=== PATIENT | male | born 1955 | race Caucasian/White ===

== ENCOUNTER 2020-01-07 08:18 | Emergency (ER) | payer OTHER ==
[~2020-01-07] VITALS: Ht 170.2 cm; Wt 71.3 kg
[~2020-01-07 08:18] MED LIST: CAT3P TD; CYCL-1 PO; FAMO20TA8 PO; HYDR-3968 PO; LACT1CAP26 PO; LISI-600 PO; ONDA4TAB6 PO; OXYB5TAB16 PO
[2020-01-07 09:42] VITALS: BP 150/86
[2020-01-07] MEDS ORDERED: pantoprazole 40 MG vial IV ONE (10:15)
[2020-01-07] MEDS ORDERED: normal saline 1000ML IV soln IVB ONE (10:15)
[2020-01-07] MEDS ORDERED: ondansetron/PF 4mg/2ml inj IV ONE (10:15)
[2020-01-07 10:38] LABS: HEMOGLOBIN 13.2 g/dl (14.0-17.9)
[2020-01-07 10:40] LABS: BASOPHILS # (AUTO) 0.1 X10'3 (0-0.2); BASOPHILS % (AUTO) 0.9 % (0-1); EOSINOPHILS # (AUTO) 0.1 X10'3 (0-0.9); EOSINOPHILS % (AUTO) 1.3 % (0-6); HEMATOCRIT 38.8 % (42.0-52.0); LYMPHOCYTES # (AUTO) 0.9 X10'3 (1.1-4.8); LYMPHOCYTES % (AUTO) 11.9 % (21-51); MEAN CORPUSCULAR HEMOGLOBIN 29.2 PG (27.0-31.0); MEAN CORPUSCULAR VOLUME 85.9 FL (78-98); MONOCYTES # (AUTO) 0.5 X10'3 (0-0.9); MONOCYTES % (AUTO) 6.9 % (2-12); NEUTROPHILS # (AUTO) 6.2 X10'3 (1.8-7.7); PLATELET COUNT 238 X10'3 (140-440); RED BLOOD COUNT 4.52 X10'6 (4.70-6.10); RED CELL DISTRIBUTION WIDTH 13.1 % (11.5-14.5); WHITE BLOOD COUNT 7.8 X10'3 (4.5-11.0)
[2020-01-07 10:49] LABS: ALANINE AMINOTRANSFERASE 44 U/L (12-78); ALBUMIN 3.8 G/DL (3.4-5.0); ALKALINE PHOSPHATASE 125 IU/L (46-116); ANION GAP 8 (8-16); ASPARTATE AMINO TRANSFERASE 22 U/L (10-37); BILIRUBIN,TOTAL 0.6 MG/DL (0.1-1.0); BLOOD UREA NITROGEN 13 MG/DL (7-18); BUN/CREATININE RATIO 14.3 (5.4-32.0); CALCIUM 9.8 MG/DL (8.5-10.1); CHLORIDE 102 MMOL/L (99-107); CREATININE 0.91 MG/DL (0.60-1.10); GLUCOSE 101 MG/DL (70-104); LIPASE 63 U/L (73-393); POTASSIUM 4.5 MMOL/L (3.5-5.1); SODIUM 140 MMOL/L (135-145); TOTAL CARBON DIOXIDE 30.1 MMOL/L (24-32); TOTAL PROTEIN 7.7 G/DL (6.4-8.2); eGFR 84 ML/MIN
== END 2020-01-07 12:24 | disposition home or self-care (01) ==
LOC: ER 08:18
DX: T85.898A Other specified complication of other internal prosthetic devices, implants and grafts, initial encounter (principal); I10 Essential (primary) hypertension; Z79.899 Other long term (current) drug therapy; Y92.89 Other specified places as the place of occurrence of the external cause; Y83.3 Surgical operation with formation of external stoma as the cause of abnormal reaction of the patient, or of later complication, without mention of misadventure at the time of the procedure
CPT/HCPCS: 36415; 71046; 80053; 83690; 85025; 96374; 96375; 99284; C9113; J2405; J7030

== ENCOUNTER 2020-02-16 11:01 | Emergency (ER) | payer OTHER ==
[~2020-02-16] VITALS: Ht 170.2 cm; Wt 62.5 kg
[~2020-02-16 11:01] MED LIST changes: -HYDR-3968 PO
[2020-02-16] MEDS ORDERED: cephalexin 250mg capsule PO ONE (11:50)
[2020-02-16] MEDS ORDERED: phenazopyridine 100mg tablet PO ONE (11:50)
[2020-02-16 12:02] VITALS: BP 138/73
[2020-02-16 12:04] LABS: CLARITY,URINE TURBID (Clear); COLOR,URINE YELLOW (Yellow); GLUCOSE, URINE NEGATIVE (Neg); KETONES,URINE NEGATIVE (Neg); LEUKOCYTE ESTERASE ,URINE MODERATE (Neg); NITRITES, URINE NEGATIVE (Neg); OCCULT BLOOD,URINE LARGE (Neg); PH,URINE 5.5 (4.8-8.0); PROTEIN,URINE 100 mg/dl (Neg)
[2020-02-16 12:16] LABS: UA COLLECTION TYPE CLN CATCH MIDSTREAM
[2020-02-16 12:17] LABS: BACTERIA,URINE 3+ /HPF (Neg); RBC,URINE 50-100 /HPF (0-2); WBC,URINE TNTC /HPF (0-4)
[2020-02-16 12:18] LABS: SQUAMOUS EPITHELIAL CELL,UR NONE SEEN /LPF (FEW)
[2020-02-16] MEDS ORDERED: CEPH-572 PO (12:19)
[2020-02-16] MEDS ORDERED: PHEN-716 PO (12:19)
[2020-02-16] MEDS ORDERED: CefTRIAXone 1000mg IM Kit (w/lidocaine diluent) IM ONE (12:30)
== END 2020-02-16 12:43 | disposition home or self-care (01) ==
LOC: ER 11:01
DX: N39.0 Urinary tract infection, site not specified (principal); I10 Essential (primary) hypertension; Z98.890 Other specified postprocedural states; Z60.2 Problems related to living alone; Z79.899 Other long term (current) drug therapy
CPT/HCPCS: 81001; 87077; 87088; 87186; 99284; J0696; 99283

== ENCOUNTER 2021-06-13 08:23 | Emergency (ER) | payer OTHER ==
[~2021-06-13] VITALS: Ht 172.7 cm; Wt 77.3 kg
[~2021-06-13 08:23] MED LIST changes: -LISI-600 PO; +LISI20TA28 PO; +PHEN-716 PO
[2021-06-13 08:44] VITALS: BP 150/84
== END 2021-06-13 13:14 | disposition home or self-care (01) ==
LOC: ER 08:24
DX: Z46.6 Encounter for fitting and adjustment of urinary device (principal); I10 Essential (primary) hypertension; Z60.2 Problems related to living alone; Z98.890 Other specified postprocedural states; Z79.899 Other long term (current) drug therapy
CPT/HCPCS: 99281